=== PATIENT | female | born 1950 | race Caucasian/White ===

== ENCOUNTER → 2017-12-16 12:11 | Outpatient (CLI) | payer OTHER, SELFPAY ==
--- NOTE | 2017-12-16 12:15 | US_ITS ---
STUDY: ULTRASOUND BREAST - RIGHT REASON FOR EXAM: Female, 67 years old. Abnormal screening mammogram. TECHNIQUE: Axial and longitudinal images of the RIGHT breast were performed with a high resolution ultrasound transducer. COMPARISON: Comparison is made with prior outside examination dated December 08, 2017. FINDINGS: RIGHT Breast: There is a 2.2 cm x 2.3 cm x 0.7 cm echogenic nodular density with anechoic areas within it at the 6:00 position breast at 2 cm from the nipple. The patient claims this to be the site of the prior breast biopsy. A tissue clip marker is seen at that site. US/Breast Limited Unilateral IMPRESSION: Slightly irregular 2.2 cm x 2.3 cm x 0.7 cm echogenic nodule with areas of decreased echotexture within it at the 6:00 position breast for 2 cm from the nipple. This corresponds to the biopsy site. ASSESSMENT CATEGORY: BIRADS Category 2: Benign. A letter regarding these results will be sent to the patient by the facility within 30 days. Electronically Signed: Raheem Williamson MD at 13:48 EDT Tel [phone], Service support ,
== END ==
PROVIDERS: Family Provider Family Medicine; PCP Family Medicine; Visit Provider Surgery
DX: R92.8 Other abnormal and inconclusive findings on diagnostic imaging of breast (principal); Z98.890 Other specified postprocedural states
CPT/HCPCS: 76642

== ENCOUNTER → 2018-11-01 10:46 | Outpatient (CLI) | payer OTHER, SELFPAY ==
--- NOTE | 2018-11-01 10:49 | BI_ITS ---
MAMMOGRAPHY - BILATERAL SCREENING REASON FOR EXAM: Female, 68 years old. Routine annual screening examination. PERTINENT HISTORY: History of prior bilateral needle Breast Biopsy TECHNIQUE: Digital bilateral breast jese (3D mammographic acquisition) in the CC and MLO projections. 2-D mediolateral oblique (MLO) and craniocaudad (CC) views of both breasts were obtained. CAD: Full Field Digital Mammography with Computer Added Detection was performed. COMPARISON: Comparison is made with prior examination dated November 12, 2016. FINDINGS: Breast Composition: There are scattered areas of fibroglandular density. There are no dominant masses or suspicious calcifications. A tissue clip marker is seen in the upper deep lateral aspect of the left breast as well as in the inferior retroareolar region of the right breast. Stable small bilateral axillary lymph nodes. No other significant abnormalities are identified. There has been no significant change since the prior study. BI/SCREEN MAMM (CAD) W/JESE BILAT IMPRESSION: Stable bilateral screening mammogram. Yearly follow-up mammogram recommended. (A) ASSESSMENT CATEGORY: BIRADS Category 2: Benign. A letter regarding these results will be sent to the patient by the facility within 30 days. Approximately 10% of breast cancers are not detected by mammography. A normal mammogram should not delay biopsy of a clinically suspicious abnormality. [id number] Electronically Signed: Raheem Williamosn, at 12:57 EDT , Service support ,
== END ==
PROVIDERS: Family Provider Family Medicine; PCP Family Medicine; Referring Provider Surgery; Visit Provider Surgery
DX: Z12.31 Encounter for screening mammogram for malignant neoplasm of breast (principal)
CPT/HCPCS: 77063; 77067

== ENCOUNTER → 2020-11-01 16:30 | Outpatient (CLI) | payer OTHER, SELFPAY ==
[2015-09-17 01:40] VITALS: BMI 26.9
--- NOTE | 2020-11-01 16:32 | BI_ITS ---
MAMMOGRAPHY - BILATERAL SCREENING REASON FOR EXAM: Female, 70 years old. Routine annual screening examination. PERTINENT HISTORY: Non-contributory. TECHNIQUE: Digital bilateral breast jese (3D mammographic acquisition) in the CC and MLO projections. 2-D mediolateral oblique (MLO) and craniocaudad (CC) views of both breasts were obtained. CAD: Full Field Digital Mammography with Computer Added Detection was performed. COMPARISON: Comparison is made with prior examination 11/01/2018. FINDINGS: Breast Composition: There are scattered areas of fibroglandular density. There are no dominant masses or suspicious calcifications. A tissue clip marker is once again seen in the upper deep lateral aspect of the left breast as well as in the inferior retroareolar region of the right breast stable benign appearing left axillary lymph node. No other significant abnormalities are identified. There has been no significant change since the prior study. BI/SCRN MAMM (CAD)W/JESE BILAT IMPRESSION: Stable bilateral screening mammogram. Yearly follow-up mammogram recommended. (A) ASSESSMENT CATEGORY: BIRADS Category 2: Benign. A letter regarding these results will be sent to the patient by the facility within 30 days. Approximately 10% of breast cancers are not detected by mammography. A normal mammogram should not delay biopsy of a clinically suspicious abnormality. [id number] Electronically Signed: Raheem Williamson MD at 8:11 EDT , Service support ,
== END ==
PROVIDERS: PCP Family Medicine; Referring Provider Surgery; Visit Provider Surgery
DX: Z12.31 Encounter for screening mammogram for malignant neoplasm of breast (principal)
CPT/HCPCS: 77063; 77067

== ENCOUNTER 2023-04-07 11:24 | Emergency (ER) | payer OTHER, SELFPAY ==
[2023-04-07 11:24] VITALS: BP 138/81; PULSE 113; RESP 22; TEMP 36.8; O2SAT 97; BMI 26.1
[2023-04-07] MEDS: Ipratropium/Albuterol Sulfate 3 ML AMPUL.NEB INHALATION (12:53)
[2023-04-07 12:55] VITALS: PULSE 71; RESP 16
[2023-04-07] MEDS: Albuterol 2.5 MG/3 ML VIAL.NEB. INHALATION ×3 (12:58→14:07)
[2023-04-07 13:07] LABS: Absolute Lymphocyte Count 1.04 X10^3/uL (0.83-4.51); Absolute Neutrophil Count 2.7 X10^3/uL (2.0-7.7); Basophil# 0.03 X10^3/uL; Basophil% 0.7 % (0-1); Eosinophil# 0.09 X10^3/uL; Hematocrit 44.2 % (37-47); Hemoglobin 14.5 g/dL (12.0-15.0); Lymphocyte # 1.04 X10^3/ul (0.83-4.51); Lymphocyte % 22.8 % (19-41); Mean Corp Hgb Conc 32.8 g/dL (32-36); Mean Corpuscular Hgb 29.8 pg (27.0-32.0); Mean Corpuscular Volume 90.9 fL (81-99); Mean Platelet Vol. 9.8 fl (6.2-12.0); Monocyte# 0.66 X10^3/uL; Monocyte% 14.5 % (0-10); NRBC Flagged by Analyzer 0 % (0-5); Neutrophil # 2.73 X10^3/uL (2.7-7.7); Neutrophil % 59.8 % (47-70); Platelet Count 205 K/mm3 (150-450); RBC Distribution Width CV 12.8 % (11.6-14.6); RBC Distribution Width SD 42.8 fl (35.1-43.9); Red Blood Count 4.86 M/mm3 (4.2-5.4); White Blood Count 4.6 K/mm3 (4.4-11.0)
[2023-04-07] MEDS: dexAMETHasone 4 MG Tablet 6 MG PO (13:16)
[2023-04-07 13:21] LABS: Anion Gap 7 (5-15); BUN 11 mg/dL (7-18); BUN/Creat Ratio 10.4 RATIO (10-20); Chloride 99 mmol/L (98-107); Creatinine, Serum 1.06 mg/dL (0.55-1.02); EST Glomerular Filtration Rate 54 mL/min (>60); Est Glom Filt Rate - Afr Amer 66 mL/min (>60); Estimated Creatinine Clearance 45.57 ml/min; Glucose 115 mg/dL (74-106); Potassium 3.2 mmol/L (3.5-5.1); Sodium Level 135 mmol/L (136-145)
--- NOTE | 2023-04-07 13:25 | RAD_ITS ---
STUDY: X-RAY CHEST REASON FOR EXAM: Female, 72 years old. Cough and wheezing . Covid. TECHNIQUE: PA and lateral views of the chest. COMPARISON: None. FINDINGS: The lungs are clear and expanded. There is no demonstrated pleural abnormality. Normal size heart. Normal mediastinum and elenita. Normal visualized pulmonary arteries. Normal visualized aortic arch and descending thoracic aorta. Normal visualized thoracic spine. Cervical fusion. There is no demonstrated abnormality of the visualized soft tissue structures of the upper abdomen. RAD/Chest PA and Lateral IMPRESSION: No acute abnormality is seen. Electronically Signed: Raheem Williamson MD at 14:09 EDT ,
[2023-04-07 14:08] VITALS: PULSE 74; RESP 18
[2023-04-07 15:10] VITALS: BP 136/80; PULSE 100; RESP 18; O2SAT 98
--- NOTE | 2023-04-07 15:38 | ED.VIS.DYS ---
HPI History of Present Illness Chief Complaint: Shortness of Breath Detail of Chief Complaint: Shortness of breath due to upper respiratory symptoms Informant: patient Onset/Context/Timing Onset: Yesterday Context: sudden Timing: Continuous Quality: Positive for Dyspnea on exertion and Wheezing; Negative for Orthopnea or PND Current Severity: Mild Maximum Severity: Moderate Worsened by: Exertion; Not Worsened By Lying flat or Coughing Relieved by: Nothing Associated Symptoms cough, rhinorrhea, post nasal drip, sore throat and clear sputum; Negative for ear pain, fever, subjective, chills or sweats Chest Pain: Positive for None Narrative Narrative: Patient is a 72-year-old woman with history of COPD, dyslipidemia, hypertension who presents because of shortness of breath. She had a positive home COVID test. She denies fever or chills. She denies headache. She denies visual, ocular auditory symptoms. She denies nausea or vomiting. She denies diarrhea. She denies urologic symptoms. She denies skin lesions or rash. She denies paresthesia or anesthesia. She denies problems with balance or coordination. PE Risk Factors: Negative for Cancer, OCP + Smoking + > 35, Prior DVT or PE, Recent immobilization, Recent surgery or Recent travel Prior similar symptoms: Yes Recent Illness/Hospitalization: No [facility] Medical History (Updated 04/07/23 @ 15:[address] Geovany Cid MD) Abnormal mammogram of right breast COPD (chronic obstructive pulmonary disease) Dyslipidemia History of diverticulosis History of right bundle branch block Hypertension Lower GI bleed Mixed anxiety and depressive disorder Sinus tachycardia Home Medications Ativan 1 mg PO TID PRN PRN Anxiety 09/16/15 [History Last Taken 09/16/15] albuterol sulfate 2.5 mg/3 mL (0.083 %) solution for nebulization 2.5 mg inhalation Q4H PRN PRN Sob &/Or Wheezing 09/16/15 [History Last Taken Unknown] albuterol sulfate 90 mcg/actuation aerosol inhaler 2 puff inhalation Q4H PRN PRN Sob &/Or Wheezing 09/16/15 [History Last Taken 09/16/15] cyclobenzaprine 10 mg tablet 10 mg PO BID PRN PRN Muscle Spasm 09/16/15 [History Last Taken 1 Week Ago ~09/09/15] lisinopril 10 mg-hydrochlorothiazide 12.5 mg tablet 1 tab PO DAILY 09/16/15 [History Last Taken 09/16/15] mirtazapine 30 mg tablet 30 mg PO QHS #15 tabs 09/18/15 [Rx Last Taken Unknown] dexamethasone 6 mg tablet 6 mg PO DAILY #6 tabs 04/07/23 [Rx Last Taken Unknown] Allergy/AdvReac Type Severity Reaction Status Date / Time imipramine HCl Allergy Unknown Verified 04/07/23 11:24 [From Tofranil] metaxalone [From Skelaxin] Allergy Unknown Verified 04/07/23 11:24 prednisone Allergy Unknown Verified 04/07/23 11:24 Social History (Updated 04/07/23 @ 15:[address] Geovany Cid MD) household members: none Smoking Status: Unknown if ever smoked substance use type: does not use ROS ROS ED Constitutional Constitutional ED: Denies chills, fever(s), sweats or weight loss Eyes Eyes: Denies blurry vision, change in vision or diplopia ENT ENT ED: Reports rhinorrhea and sore throat; Denies ear pain Cardiovascular Cardiovascular: Denies chest pain, orthopnea, palpitations or paroxysmal nocturnal dyspnea Respiratory/Chest Respiratory/Chest: Reports cough, dyspnea and sputum; Denies dyspnea on exertion, orthopnea or paroxysmal nocturnal dyspnea Gastrointestinal Gastrointestinal: Denies abdominal pain, nausea or vomiting Genitourinary Genitourinary ED: Denies dysuria, hematuria or urinary frequency Musculoskeletal Musculoskeletal: Denies arthralgias or myalgias Integumentary Denies rash Neurologic Neurologic: Reports weakness; Denies headache(s) or paresthesias Endocrine Endocrinology: Denies cold intolerance or heat intolerance Hematologic/Lymphatic Hematologic/Lymphatic: Denies easy bleeding or easy bruising EXAM Physical Exam Const Vital Signs: 04/07/23 11:24 04/07/23 12:55 04/07/23 12:37 Temperature 98.3 F Temperature Source Temporal Pulse Rate 113 H 71 Respiratory Rate 22 H 16 Respiratory Effort Short of Breath Respiratory Pattern Normal Blood Pressure 138/81 H Blood Pressure Mean 100 Pulse Ox 97 Oxygen Delivery Method Room Air Room Air 04/07/23 14:08 04/07/23 15:10 Temperature Temperature Source Pulse Rate 74 100 Respiratory Rate 18 18 Respiratory Effort Respiratory Pattern Normal Blood Pressure 136/80 H Blood Pressure Mean 98 Pulse Ox 98 Oxygen Delivery Method Room Air Positive well nourished and well developed General Appearance ED: well developed and NAD; Negative for pallor HEENT Reports moist mucous membranes HEENT Narrative: Head is normocephalic and atraumatic. Ears normal. TMs normal. Nares patent. Posterior pharynx is normal. atraumatic; Negative for trauma Eyes PERRL and EOMs intact bilaterally General Eye ED: Negative for pale conjunctiva or scleral icterus Neck no lymphadenopathy, supple, no meningeal signs and no JVD Resp normal respiratory effort and clear to auscultation bilaterally Cardio regular rate, regular rhythm, S1 normal heart sound, S2 normal heart sound and no murmurs GI non-tender, non-distended and no masses Auscultation: hypoactive bowel sounds Palpation: soft Back/Spine no CVA tenderness Extremity normal to inspection Extremity Narrative: There is no asymmetry, swelling, discoloration, leg vein distention, palpable cords or tenderness along the distribution of the deep venous system. General Extremety ED: Negative for edema or tenderness General Extremity: Negative for edema Neuro oriented x3, CN's II-XII intact bilaterally and no sensory deficits noted [place] Coma Scale: document GCS findings Spontaneous Obeys Commands Oriented 15 Sensorium / Orientation: alert Motor Exam: strength 5/5 throughout Psych mental status grossly normal Skin no wounds and skin turgor normal General Skin Exam: Negative for jaundice or pallor MDM MDM MDM Narrative Medical decision making narrative: Since patient is wheezing has history of COPD and positive home COVID test we will treat with Decadron and DuoNeb followed by albuterol. Chest x-ray obtained to rule out pneumonia. If there is an infiltrate this consistent with an infectious process other than COVID we will treat with antibiotics otherwise we will treat with Decadron and have patient use her inhaler more frequently. History & Record Review Discussion w/independent historian: Patient Lab Data Attestation: I reviewed the patient's lab results. Lab results narrative: SlightCBC is unremarkable. White count is slightly than her baseline. Elevated at 1.06 with a GFR of 54. This is higher than normal for her Labs: Laboratory Results - last 24 hr 04/07/23 12:58 WBC 4.6 RBC 4.86 Hgb 14.5 Hct 44.2 MCV 90.9 MCH 29.8 MCHC 32.8 RDW Std Deviation 42.8 RDW Coeff of Marva 12.8 Plt Count 205 MPV 9.8 Immature Gran % (Auto) 0.200 Neut % (Auto) 59.8 Lymph % (Auto) 22.8 [place] % (Auto) 14.5 H Eos % (Auto) 2.0 Baso % (Auto) 0.7 Absolute Neuts (auto) 2.7 Absolute Lymphs (auto) 1.04 Nucleated RBC % 0 Sodium 135 L Potassium 3.2 L Chloride 99 Carbon Dioxide 29.0 Anion Gap 7 BUN 11 Creatinine 1.06 H Estim Creat Clear Calc 45.57 Est GFR (MDRD) Af Amer 66 Est GFR (MDRD) Non-Af 54 L BUN/Creatinine Ratio 10.4 Glucose 115 H Calcium 9.0 Radiography Chest X-Ray - ED: 2 View and Read by ED Physician (Reviewed interpreted by me at 1342 as negative for any acute process. Cardiac silhouette size normal. Lung parenchyma is normal. Perihilar regions normal. Osseous structures are unremarkable.) Diagnostic Testing: Clinical Impression(s) from Imaging Studies Chest X-Ray 04/07/23 13:25 IMPRESSION: No acute abnormality is seen. Electronically Signed: Raheem Williamson MD at 14:09 EDT , Treatment and Re-Evaluation :: Patient was wheeze free after 2 treatments. Plan is to discharge after third with prescription for Decadron. Discharge Plan Triage Chief Complaint: Shortness of Breath ED Provider: Geovany Cid Dx/Rx/DC Orders Clinical Impression: COVID-19 virus infection, Dyslipidemia, Hypertension, Acute exacerbation of chronic obstructive pulmonary disease, Acute bronchospasm Instructions: Coronavirus Disease 2019 (COVID-19): Caring for Yourself or Others, ED COPD Flare, ED Inhaler Use Prescriptions: New dexamethasone 6 mg tablet 6 mg PO DAILY Qty: 6 0RF No Action Ativan 1 mg PO TID PRN PRN (Reason: Anxiety) Patient Comments: anxiety cyclobenzaprine 10 MG tablet 10 mg PO BID PRN PRN (Reason: Muscle Spasm) Patient Comments: muscle spasms albuterol sulfate 2.5 MG/3 ML solution for nebulization 2.5 mg INHALATION Q4H PRN PRN (Reason: Sob &/Or Wheezing) Patient Comments: shortness of breath/wheezing lisinopril-hydrochlorothiazide 1 TABLET tablet 1 tab PO DAILY Patient Comments: blood pressure albuterol sulfate 1 PUFF inhaler 2 puff INHALATION Q4H PRN PRN (Reason: Sob &/Or Wheezing) Patient Comments: shortness of breath/wheezing mirtazapine 30 MG tablet 30 mg PO QHS Qty: 15 0RF Patient Comments: restless legs Primary Care Provider: Tony Cavanaugh Referrals: Tony Cavanaugh MD [Primary Care Provider] - As Needed Activity Restrictions/Additional Instructions: 1. Take Decadron until gone 2. Use your inhaler more frequently. If you are having trouble breathing you may administer 4 to 6 puffs every 15 minutes for 2-3 times. If you are not better then recommend coming to the emergency department Disposition Disposition: Home, Self Care
[2023-04-07 16:03] VITALS: BP 99/92; PULSE 110; RESP 20; O2SAT 95
== END 2023-04-07 16:04 | disposition home or self-care (01) ==
PROVIDERS: Emergency Provider Emergency Medicine; PCP Family Medicine; Visit Provider Emergency Medicine
DX: U07.1 COVID-19 (principal); J44.1 Chronic obstructive pulmonary disease with (acute) exacerbation; E78.5 Hyperlipidemia, unspecified; I10 Essential (primary) hypertension; J98.01 Acute bronchospasm
CPT/HCPCS: 71046; 80048; 85025; 94640; 99282

== ENCOUNTER → 2023-12-18 | Outpatient (CLI) | payer OTHER, SELFPAY ==
--- NOTE | 2023-12-18 14:34 | ST.MBS ---
Modified Barium Swallow Patient Information Study Date: 12/18/23 Study Time: 13:00 Direct Billable Minutes: 99 Total Minutes procedure & reportin Diagnosis: Dysphagia R13.10 Referring Physician: Tony Cavanaugh Reason for Referral: Objectively assess swallow function, assess risk for aspiration, and determine recommendations for least restrictive diet textures and compensatory strategies to improve safety of swallow. 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 Patient's PCP referred her for MBSS due to history of swallowing difficulty. Per patient, she required the Heimlich for a choking incident ~7-8 years ago. In the past 1-2 years, she began having more difficulty swallowing solids, such as bread, potato chips, and biscuits. These foods feel like they become caught at the base of her throat. At times, she tries to wash with liquids and she will have to spit out the liquids. She occasionally feels like liquids go down the wrong way. Current Diet Ordered: Regular textures / Thin liquids Dentition: Missing Teeth (Has dentures, but does not use them to eat) Mental Status: WNL Respiratory Status: Oxygenating on Room Air Penetration-Aspiration Scale Penetration-Aspiration Scale: OBJECTIVE ASSESSMENT OF SWALLOW FUNCTION (QUANTITATIVE ? PER TRIAL): PENETRATION / ASPIRATION SCALE (KRUEGER): 1 = does not enter airway 2 = enters airway/above vocal folds/ejected 3 = enters airway/above vocal folds/not ejected 4 = enters airway/contacts vocal folds/ejected 5 = enters airway/contacts vocal folds/not ejected 6 = enters airway/below vocal folds/ejected 7 = enters airway/below vocal folds/not ejected despite effort 8 = enters airway/below vocal folds/no effort VIDEOFLOROSCOPIC SCALE SCORE (KRUEGER): Grade I = aspiration of material that has penetrated into the laryngeal vestibule, intact cough reflex Grade II = aspiration < 10 % of the bolus, intact cough reflex Grade III = aspiration of < 10 % of the bolus, reduced cough reflex or aspiration of > 10 % of the bolus, intact cough reflex Grade IV = aspiration of > 10 % of the bolus, reduced cough reflex Penetration-Aspiration Scale Score Thin Liquid via teaspoon: Result: 4= enters airway/contacts vocal folds/ejected Thin Liquid via teaspoon Trial 2: Result: 4= enters airway/contacts vocal folds/ejected Thin Liquid via sequential sips: cup: Result: 2= enter airway/above vocal folds/ejected [place] Thick Liquid via large single sip: cup: Result: 1= does not enter airway Pudding via teaspoon: Result: 1= does not enter airway Comment: Esophageal screen - Retention of pudding in the upper-middle esophagus, mild retention in lower esophagus. Thin Liquid via single sip: straw: Result: 1= does not enter airway Comment: Esophageal screen - Liquid appeared to clear through the esophagus; it was somewhat effective in clearing pudding barium contrast from the middle esophagus. Cookie: Result: 1= does not enter airway Comment: 1/2 Cookie Esophageal screen - Retention of cookie throughout the esophagus. Thin Liquid via sequential sips:straw: Comment: Esophageal screen - Liquid wash mostly cleared cookie/barium contrast from the esophagus; however, retention and retrograde flow of liquids was present in the mid esophagus. Also of note, a piece of un-chewed cookie appeared to clear through the esophagus with liquid wash. Thin Liquid via teaspoon Effortful swallow: Result: 1= does not enter airway Thin Liquid via teaspoon Effortful swallow Trial 2: Result: 1= does not enter airway Oral Phase Labial Seal: Escape beyond interlabial space; no extension beyond amalia border Tongue Control During Bolus Hold: Posterior escape of greater than half of bolus Bolus Preparation/Mastication: Disorganized chewing/mashing with solid pieces of bolus unchewed (Piece of cookie appeared un-chewed during esophageal screen) Bolus Transport/Lingual Motion: Repetitive/disorganized tongue motion Oral Residue: Residue collection on oral structures Pharyngeal Phase Initiation of Pharyngeal Swallow: Bolus head in pyriforms Soft Palate Elevation: No bolus between soft palate and pharyngeal wall Laryngeal Elevation: Comp. Superior move thyroid cart w/comp. apprx arytenoid cart-epig pet Anterior Hyoid Excursion: Partial anterior movement Epiglottic Movement: Complete inversion Laryngeal Vestibule Closure at Height of Swallow: Incomplete; narrow column of air/contrast in laryngeal vestibule Pharyngeal Stripping Wave: Present - complete Pharyngoesophageal Segment Opening: Complete distension and complete duration; no obstruction of flow Tongue Base Retraction: Narrow column of contrast between tongue base & post. pharyngeal wall Pharyngeal Residue: Trace residue within or on pharyngeal structures Esophageal Phase Esophageal Clearance: Esophageal retention w/ retrograde flow below pharyngoesophageal seg. Diagnosis/Impression Diagnosis: Mild oropharyngeal dysphagia R13.12; Esophageal dsyphagia R13.14 Impression: The oral phase is primarily marked by... -Decreased bolus control with large or sequential sips with premature posterior loss to the pyriforms prior to swallow onset. -Decreased mastication with pieces of cookie appearing un-chewed. -Mild oral residues with large sips, which she independently cleared with a second swallow as needed. The pharyngeal phase is primarily marked by... -Delayed swallow onset, most notable with thin liquids. -Decreased anterior hyoid excursion; however, complete laryngeal elevation and epiglottic inversion. Patient had deep laryngeal penetration of thin liquids by tsp to the vocal folds with complete ejection after the swallow was complete. Use of effortful swallow decreased the patient's risk for aspiration with thin liquids by tsp. No aspiration observed during the study. -Mildly decreased tongue base retraction. The esophageal phase is primarily marked by... -Esophageal retention of cookie and pudding in the esophagus, which somewhat cleared when provided liquid washes. Retention and retrograde flow of thin liquid barium in the lower esophagus. -Cricopharyngeal bar at the level of C5, which does not appear to impact bolus clearance through the upper esophageal sphincter. Recommendations Diet: Regular Textures (Easy to Chew Textures - IDDSI Level 7) and Thin Liquids Comment: IF SENSATION OF RETENTION, FULLNESS, REFLUX, OR REGURGITATION DESPITE USE OF STRATEGIES, STOP MEAL AND RESUME AT A LATER TIME. Compensatory Strategies: Small Bites (Chew thoroughly), Small Sips (For spoon sips [e.g. soups, cereal] use an effortful/hard swallow), Slow Rate, Alternate bites/solids and sips/liquids (1:1 ratio), Sitting upright and Remain sitting upright for 30 minutes after PO intake Recommend Repeat Modified Barium Swallow: TBD Need for Skilled Speech Therapy Services: Yes Comment: -Train the patient in use of strategies to decrease risk for aspiration and reflux aspiration. -Ongoing assessment of diet tolerance of recommended textures. -Train the patient in oropharyngeal exercise program to improve bolus control, swallow onset, and tongue base retraction (lingual resistance/coordination, Erinn Dey). Recommended Referrals: GI Consult Education Completed: 1. Described result of evaluation., 2. Pt understands evaluation & agrees with goals and treatment plan. and 4. Family/caregivers understand evaluation & agree w/ goals & tx plan. ([id number] present) Status Active ST Patient: Active Contact Information [facility] Speech Therapy:: Catherine Bentley M.A. CCC-GROUP WORK PROGRAM AIDE? Speech-Language Pathologist?? [facility] [id number]?? [place] [address]?? [email or web address]?? [phone]
== END | disposition home or self-care (01) ==
LOC: RAD 12:42
PROVIDERS: PCP Family Medicine; Referring Provider Family Medicine; Visit Provider Family Medicine
DX: R13.14 Dysphagia, pharyngoesophageal phase (principal)
CPT/HCPCS: 74230; 92611